=== PATIENT | female | born 1990 | race Caucasian/White ===

== ENCOUNTER → 2018-04-09 22:52 | Observation (INO) ==
[2018-04-09 21:35] LABS: Basophils % 0.2 %; Eosinophils % 0.3 %; Hematocrit 39.8 % (35.3-44.9); Hemoglobin 13.4 g/dL (11.5-15.4); Immature Granulocytes % 0.6 % (0-4); Lymphocytes # 1.9 K/mcL (0.6-4.6); Lymphocytes % 15.8 %; Mean Corpuscular HGB Conc 33.7 g/dL (31.6-35.5); Mean Corpuscular Hemoglobin 30.3 pg (28.0-33.3); Mean Platelet Volume 10.9 fL (9.4-12.4); Monocytes # 0.9 K/mcL (0.0-1.3); Monocytes % 7.6 %; Neutrophils # 8.9 K/mcL (1.6-8.9); Platelet Count 321 K/mcL (140-400); Red Blood Count 4.42 M/mcL (3.82-4.97); Red Cell Distribution Width 12.7 % (11.5-14.5); Segmented Neutrophils % 75.5 %
[2018-04-09 21:38] LABS: Bilirubin,Urine Negative (Negative); Blood,Urine Small (Negative); Clarity,Urine Cloudy (Clear); Color,Urine Yellow (Yellow); Glucose,Urine (UA) Normal (Normal); Ketones,Urine Negative (Negative); Leukocyte Esterase,Urine Negative (Negative); Nitrite,Urine Negative (Negative); PH,Urine 6.5 pH Units (5.0-8.0); Protein,Urine 30 mg/dL (Neg-Trace); Specific Gravity,Urine 1.021 (1.010-1.025); Urobilinogen,Urine Normal (Normal)
[2018-04-09 21:41] LABS: Bacteria,Urine Moderate per hpf (None-Few); Hyaline Casts,Urine None Seen per lpf (None-Few); Squamous Epithelial Cell,Urine Many per lpf (None-Few)
[2018-04-09 21:46] LABS: Amphetamine Screen,Urine Negative ng/mL (Cutoff=1000); Barbiturate Screen,Urine Negative ng/mL (Cutoff=200); Benzodiazepines Screen,Urine Negative ng/mL (Cutoff=200); Cannabinoid Screen,Urine Negative ng/mL (Cutoff = 50); Cocaine Screen,Urine Negative ng/mL (Cutoff= 300); Opiate Screen,Urine Negative ng/mL (Cutoff=300); Phencyclidine Screen,Urine Negative ng/mL (Cutoff=25); Protein/Creatinine Ratio,Urine 0.4 mg/mg (0.00-0.20)
[2018-04-09 21:55] LABS: Alanine Aminotransferase 14 Units/L (7-52); Aspartate Amino Transferase 16 Units/L (13-39); BUN/Creatinine Ratio 20 (6-26); Blood Urea Nitrogen 11 mg/dL (6-20); Lactate Dehydrogenase 166 Units/L (140-271); Uric Acid 4.2 mg/dL (2.3-7.6); eGFR For Non-African Americans > 60 (> 60)
--- NOTE | 2018-04-09 23:04 | OB/GYN Progress Note ---
Date of Encounter: 04/09/18 Time of Encounter: 22:57 - Assessment and Plan (1) 34 weeks gestation of Current Visit: Yes Status: Acute (2) Swelling of lower extremity during in third trimester Current Visit: Yes Status: Acute (3) Gestational edema with proteinuria in third trimester Current Visit: Yes Status: Acute Patient with blood pressures ranging from 120/80s to 140/90s during admission. PNC ratio 0.4, the patient has had previous admissions in this per proteinuria also presence of blood in sample. Cervical exam remains unchanged from exam yesterday a [facility]. Discussed patient with Dr. Sherwood will discharge home with labor, and PIH precautions, follow up with regular OB at Wednesday appointment, encouraged patient to take prescribed medications. Patient verbalizes understanding Laboratory Results - last 24 hr 04/09/18 04/09/18 04/09/18 21:05 21:05 21:05 WBC 11.7 H RBC 4.42 Hgb 13.4 Hct 39.8 MCV 90.0 MCH 30.3 MCHC 33.7 RDW 12.7 Plt Count 321 MPV 10.9 Immature Gran % 0.6 Seg Neutrophils % 75.5 Lymphocytes % 15.8 Monocytes % 7.6 Eosinophils % 0.3 Basophils % 0.2 Neutrophils # 8.9 Lymphocytes # 1.9 Monocytes # 0.9 Eosinophils # 0.0 Basophils # 0.0 BUN 11 Creatinine 0.56 L Est GFR ( Amer) > 60 Est GFR (Non-Af Amer) > 60 BUN/Creatinine Ratio 20 Uric Acid 4.2 AST 16 ALT 14 Lactate Dehydrogenase 166 Urine Color Yellow Urine Clarity Cloudy A Urine pH 6.5 Ur Specific [place] 1.021 Urine Protein 30 H Urine Glucose (UA) Normal Urine Ketones Negative Urine Blood Small H Urine Nitrite Negative Urine Bilirubin Negative Urine Urobilinogen Normal Ur Leukocyte Esterase Negative Urine Microscopic RBC 5-15 H Urine Microscopic WBC 5-15 H Ur Squamous Epith Cells Many H Urine Bacteria Moderate H Hyaline Casts None Seen Ur Culture Indicated? NO Urine Creatinine Protein/Creatinin Ratio Urine Total Protein Urine Opiates Screen Ur Barbiturates Screen Ur Phencyclidine Scrn Ur Amphetamines Screen U Benzodiazepines Scrn Urine Cocaine Screen U Marijuana (THC) Screen Ur Drug Screen Interp 04/09/18 04/09/18 21:07 21:07 WBC RBC Hgb Hct MCV MCH MCHC RDW Plt Count MPV Immature Gran % Seg Neutrophils % Lymphocytes % Monocytes % Eosinophils % Basophils % Neutrophils # Lymphocytes # Monocytes # Eosinophils # Basophils # BUN Creatinine Est GFR ( Amer) Est GFR (Non-Af Amer) BUN/Creatinine Ratio Uric Acid AST ALT Lactate Dehydrogenase Urine Color Urine Clarity Urine pH Ur Specific [place] Urine Protein Urine Glucose (UA) Urine Ketones Urine Blood Urine Nitrite Urine Bilirubin Urine Urobilinogen Ur Leukocyte Esterase Urine Microscopic RBC Urine Microscopic WBC Ur Squamous Epith Cells Urine Bacteria Hyaline Casts Ur Culture Indicated? Urine Creatinine 153 Protein/Creatinin Ratio 0.40 H Urine Total Protein 61 H Urine Opiates Screen Negative Ur Barbiturates Screen Negative Ur Phencyclidine Scrn Negative Ur Amphetamines Screen Negative U Benzodiazepines Scrn Negative Urine Cocaine Screen Negative U Marijuana (THC) Screen Negative Ur Drug Screen Interp See Below (4) Chronic hypertension affecting Current Visit: Yes Status: Acute Subjective - Subjective Interval history: 34+ weeks gestation presents to triage with complaints of increased swelling and contractions. He should not has been receiving her care [facility] Sandhu since leaving the [place] practice, patient states she was diagnosed with preeclampsia at 28 weeks and also with labor, patient states he has been followed by her OB for both of these conditions, last seen Phoebe yesterday. Patient reports to contractions today, and says she feels that her hands and feet have increased in edema. Patient states she was diagnosed with chronic hypertension prior to , has not been on medications as , patient also diagnosed with gestational diabetes, has been diagnosed metformin but patient is not taking. Reports good movement, denies vaginal bleeding or leaking of fluid. Denies headache, visual changes or RUQ pain. Antepartum ROS: movement normal, contractions, no loss of fluid, no vaginal bleeding Objective - Exam FHR: category 1 Abdomen: Present: soft, gravid Cervical dilation: /-2 - Labs Labs: Abnormal lab results WBC 11.7 K/mcL (4.3-11.1) H 04/09/18 21:05 Creatinine 0.56 mg/dL (0.60-1.20) L 04/09/18 21:05 Urine Clarity Cloudy (Clear) A 04/09/18 21:05 Urine Protein 30 mg/dL (Neg-Trace) H 04/09/18 21:05 Urine Blood Small (Negative) H 04/09/18 21:05 Urine Microscopic RBC 5-15 per hpf (0-3) H 04/09/18 21:05 Urine Microscopic WBC 5-15 per hpf (0-3) H 04/09/18 21:05 Ur Squamous Epith Cells Many per lpf (None-Few) H 04/09/18 21:05 Urine Bacteria Moderate per hpf (None-Few) H 04/09/18 21:05 Protein/Creatinin Ratio 0.40 mg/mg (0.00-0.20) H 04/09/18 21:07 Urine Total Protein 61 mg/dL (1-14) H 04/09/18 21:07
== END | disposition home or self-care (01) ==
LOC: 1NENULAB
PROVIDERS: ADMIT Advanced Practice Midwife; ATTEND Advanced Practice Midwife